=== PATIENT | female | born 1945 | race American Indian/Alaskan Native ===

== ENCOUNTER 2017-08-08 17:21 | Emergency (ER) | payer MEDICARE ==
[2017-08-08 18:05] LABS: Basophils % (Auto) 0.6 % (0.0-1.8); Eosinophils % (Auto) 0.9 % (0.0-4.3); Hematocrit 40.4 % (30.3-42.9); Hemoglobin 13.1 gm/dl (10.1-14.3); Mean Corpuscular HGB Conc 33 % (30-34); Mean Corpuscular Hemoglobin 29 pg (28-32); Mean Corpuscular Volume 90 fl (79-97); Platelet Count 191 K/mm3 (140-440); Red Blood Count 4.47 M/mm3 (3.65-5.03); Red Cell Distribution Width 15.1 % (13.2-15.2); White Blood Count 7.1 K/mm3 (4.5-11.0)
[2017-08-08] MEDS ORDERED: NACL 0.9% 1000 ML 1,000 ML IV ONE (18:08)
[2017-08-08] MEDS ORDERED: ZOFRAN IV ONE (18:08)
--- NOTE | 2017-08-08 18:13 | Emergency Department Report ---
ED Abdominal Pain HPI - General Chief Complaint: Medical Clearance Stated Complaint: FAILURE TO THRIVE Time Seen by Provider: 08/08/17 18:01 Source: EMS Mode of arrival: Stretcher Limitations: Other - History of Present Illness Initial Comments: Patient is 71 years old female sent from [facility] for evaluation of failure to thrive. Patient refuses to eat or drink for the last 2-3 days. Patient was admitted there for suicidal and homicidal ideation. History of dementia, hypertension and asthma. Patient is refusing to talk but I was able to get some information from her, when asked about abdominal pain patient stated that he has, when I ask about urinary symptoms patient stated this. Patient denied chest pain. MD Complaint: abdominal pain - Related Data Home Medications Medication Instructions Recorded Confirmed Last Taken ALPRAZolam [Xanax TAB] 1 mg PO DAILY 11/18/16 11/26/16 11/25/16 Dexlansoprazole (Nf) [Dexilant 1 tab PO DAILY 11/18/16 11/26/16 11/25/16 (Nf)] Furosemide [Lasix] 20 mg PO QDAY 11/18/16 11/26/16 11/25/16 Lisinopril [Zestril TAB] 10 mg PO QDAY 11/18/16 11/26/16 11/26/16 04:00 Nortriptyline HCl [Nortriptyline 1 tab PO DAILY 11/18/16 11/26/16 11/24/16 HCl] Quetiapine Fumarate [Seroquel] 100 mg PO QHS 11/18/16 11/26/16 11/24/16 ALBUTEROL Inhaler [Proair] 2 puff IH QID PRN 11/19/16 11/19/16 Unknown Linaclotide (Nf) [Linzess (Nf)] 290 mcg PO QDAY 11/19/16 11/26/16 11/25/16 Meclizine [Antivert] 25 mg PO TID PRN 11/19/16 11/19/16 Unknown Memantine HCl [Namenda Xr] 28 mg PO DAILY 11/19/16 11/26/16 11/25/16 Naftifine HCl [Naftin 2%] 1 applicatio TP QDAY 11/19/16 11/26/16 11/24/16 predniSONE [Deltasone] 10 mg PO PRN PRN 11/19/16 11/26/16 11/25/16 Allergies Allergy/AdvReac Type Severity Reaction Status Date / Time pregabalin [From Lyrica] Allergy Swelling Unverified 09/17/13 08:58 gabapentin AdvReac CONFUSION Verified 11/19/16 09:57 ED Review of Systems ROS: Stated complaint: FAILURE TO THRIVE Other details as noted in HPI Comment: Unobtainable due to pts medical conditions ED Past Medical Hx - Past Medical History Previous Medical History?: Yes Hx Hypertension: Yes (Cardiac clearance states that no preop beta sarbjit is required.) Hx Diabetes: No (DENIES, NON FASTING GLUCOSE 159,"REPEAT DOS" PER ANESTHESIA FAXED TO PCP) Hx Deep Vein Thrombosis: Yes (H/O"LUNG PULMONARY EMBOLISMS" S AND 2012 NO COUMADIN SINCE 2012) Hx Pulmonary Embolism: Yes ( and 2012 POST BACK SURGERY) Hx GERD: Yes (GERD) Hx Arthritis: Yes Hx Asthma: Yes (Seasonal, mostly with pollen) Hx Dementia: Yes (SEE ABOVE) Hx HIV: No - Surgical History Hx Cholecystectomy: Yes - Social History Smoking Status: Unknown if ever smoked Substance Use Type: None - Medications Home Medications: Home Medications Medication Instructions Recorded Confirmed Last Taken Type ALPRAZolam [Xanax TAB] 1 mg PO DAILY 11/18/16 11/26/16 11/25/16 History Dexlansoprazole (Nf) [Dexilant 1 tab PO DAILY 11/18/16 11/26/16 11/25/16 History (Nf)] Furosemide [Lasix] 20 mg PO QDAY 11/18/16 11/26/16 11/25/16 History Lisinopril [Zestril TAB] 10 mg PO QDAY 11/18/16 11/26/16 11/26/16 04:00 History Nortriptyline HCl [Nortriptyline 1 tab PO DAILY 11/18/16 11/26/16 11/24/16 History HCl] Quetiapine Fumarate [Seroquel] 100 mg PO QHS 11/18/16 11/26/16 11/24/16 History ALBUTEROL Inhaler [Proair] 2 puff IH QID PRN 11/19/16 11/19/16 Unknown History Linaclotide (Nf) [Linzess (Nf)] 290 mcg PO QDAY 11/19/16 11/26/16 11/25/16 History Meclizine [Antivert] 25 mg PO TID PRN 11/19/16 11/19/16 Unknown History Memantine HCl [Namenda Xr] 28 mg PO DAILY 11/19/16 11/26/16 11/25/16 History Naftifine HCl [Naftin 2%] 1 applicatio TP QDAY 11/19/16 11/26/16 11/24/16 History predniSONE [Deltasone] 10 mg PO PRN PRN 11/19/16 11/26/16 11/25/16 History ED Physical Exam - General Limitations: Other General appearance: alert, in no apparent distress - Head Head exam: Present: atraumatic, normocephalic, normal inspection - Eye Eye exam: Present: normal appearance - ENT ENT exam: Present: normal exam, normal orophraynx, mucous membranes dry, TM's normal bilaterally - Neck Neck exam: Present: normal inspection - Respiratory Respiratory exam: Present: normal lung sounds bilaterally. Absent: respiratory distress, wheezes, rales, rhonchi, chest wall tenderness, decreased breath sounds, prolonged expiratory - Cardiovascular Cardiovascular Exam: Present: regular rate, normal rhythm, normal heart sounds - GI/Abdominal GI/Abdominal exam: Present: soft, tenderness, normal bowel sounds. Absent: distended, guarding, rebound, rigid, organomegaly, mass, bruit, pulsatile mass, hernia - Extremities Exam Extremities exam: Present: normal inspection, full ROM, normal capillary refill. Absent: tenderness, pedal edema - Back Exam Back exam: Present: normal inspection. Absent: CVA tenderness (R), CVA tenderness (L) - Neurological Exam Neurological exam: Present: alert, CN II-XII intact - Psychiatric Psychiatric exam: Present: depressed. Absent: anxious, flat affect - Skin Skin exam: Present: warm, dry, intact ED Course Vital Signs 08/08/17 08/08/17 08/08/17 17:25 17:29 17:30 Temperature 98.4 F Pulse Rate 82 Respiratory 16 Rate Blood Pressure 98/48 112/63 O2 Sat by Pulse 97 100 Oximetry 08/08/17 08/08/17 08/08/17 18:00 18:30 19:00 Temperature Pulse Rate Respiratory Rate Blood Pressure 122/63 124/65 119/62 O2 Sat by Pulse 98 100 97 Oximetry 08/08/17 08/08/17 20:00 20:51 Temperature Pulse Rate 84 Respiratory 16 Rate Blood Pressure 130/70 O2 Sat by Pulse 99 99 Oximetry ED Medical Decision Making - Lab Data Result diagrams: 08/08/17 17:44 08/08/17 17:44 - Radiology Data Radiology results: report reviewed CT abdomen and pelvis with no acute finding. Critical care attestation.: If time is entered above; I have spent that time in minutes in the direct care of this critically ill patient, excluding procedure time. ED Disposition Clinical Impression: Abdominal pain, UTI (urinary tract infection), Suicidal ideation Disposition: [id number]/TX-[id number] PSY HOSP/PSY UNIT Is pt being admited?: No Condition: Stable Instructions: Urinary Tract Infection in Women (ED)
[2017-08-08 18:22] LABS: Anion Gap 18 mmol/L; BUN/Creatinine Ratio 18; Blood Urea Nitrogen 11 mg/dL (7-17); Calcium 8.7 mg/dL (8.4-10.2); Carbon Dioxide 27 mmol/L (22-30); Chloride 102.6 mmol/L (98-107); Glucose 84 mg/dL (65-100); Potassium 3.5 mmol/L (3.6-5.0); Sodium 144 mmol/L (137-145)
[2017-08-08] MEDS ORDERED: DILAUDID IV ONE (18:24)
[2017-08-08 19:05] LABS: Alanine Aminotransferase 7 units/L (7-56); Albumin 3.4 g/dL (3.9-5); Albumin/Globulin Ratio 1.5 %; Alkaline Phosphatase 42 units/L (35-129); Anion Gap 17 mmol/L; BUN/Creatinine Ratio 18; Blood Urea Nitrogen 11 mg/dL (7-17); Calcium 8.7 mg/dL (8.4-10.2); Carbon Dioxide 27 mmol/L (22-30); Chloride 102.4 mmol/L (98-107); Glucose 84 mg/dL (65-100); Lipase 36 units/L (13-60); Potassium 3.4 mmol/L (3.6-5.0); Sodium 143 mmol/L (137-145); Total Protein 5.7 g/dL (6.3-8.2)
[2017-08-08 19:14] LABS: Bilirubin,Direct < 0.2 mg/dL (0-0.2); Bilirubin,Indirect 0.2 mg/dL
[2017-08-08] MEDS ORDERED: PROTONIX IV ONE (19:24)
--- NOTE | 2017-08-08 20:32 | Cat Scan Report ---
FINAL REPORT EXAM: CT ABDOMEN PELVIS W CON HISTORY: abdominal pain is and TECHNIQUE: CT abdomen and pelvis with intravenous contrast PRIORS: None. FINDINGS: No acute abnormality identified in the lung bases. Low-density focus seen within the left lobe of the liver adjacent to the fissure may reflect focal possibly hemangioma. Patient is status post cholecystectomy. There is mild prominence of common bile duct most likely a post cholecystectomy and age related finding The spleen demonstrates normal size and attenuation. No pancreatic abnormalities seen. The kidneys demonstrate symmetric contrast enhancement. No evidence of hydronephrosis. The adrenal glands are unremarkable Abdominal aorta is normal in caliber. No pathologically enlarged lymph nodes are identified. No signs of free fluid or free air No evidence of small bowel dilatation. Colon is nondistended. No pericolonic inflammatory change. Urinary bladder is unremarkable. There is compression fracture L2 age indeterminate. IMPRESSION: Compression fracture L2 age-indeterminate Status post cholecystectomy Low-density focus within the left lobe of the liver. Probable focal fat or possibly hemangioma.
[2017-08-08 21:08] LABS: Bacteria,Urine 4+ /HPF (Negative); Bilirubin,Urine NEG (Negative); Blood,Urine MOD (Negative); Ketones,Urine TR mg/dL (Negative); Leukocyte Esterase,Urine LG (Negative); Mucus,Urine 3+ /HPF; Nitrite,Urine NEG (Negative); Urobilinogen,Urine < 2.0 mg/dL (<2.0)
[2017-08-08 21:09] LABS: WBC,Urine > 182.0 /HPF (0.0-6.0)
[2017-08-08] MEDS ORDERED: ROCEPHIN/NS 1 GM/50 ML 1 GM/50 ML BAG IV ONE (22:27)
[2017-08-09 03:09] VITALS: BP 121/62
== END 2017-08-09 03:44 ==
LOC: ED 17:21
DX: R45.851 Suicidal ideations (principal); R45.850 Homicidal ideations; N39.0 Urinary tract infection, site not specified; R10.9 Unspecified abdominal pain; I10 Essential (primary) hypertension; K21.9 Gastro-esophageal reflux disease without esophagitis; J45.909 Unspecified asthma, uncomplicated
CPT/HCPCS: 36415; 74177; 80048; 80074; 81001; 83690; 85025; 87040; 96361; 96365; 96375; 99285; C9113; J0696; J1170; J2405; J7030; Q9967

== ENCOUNTER 2021-07-09 14:58 | Emergency (ER) | payer MEDICARE ==
--- NOTE | 2021-07-09 15:08 | Emergency Department Report ---
ED General Adult HPI - General Stated complaint: G TUBE REPLACEMENT Time Seen by Provider: 07/09/21 15:06 - History of Present Illness Initial comments: Patient was brought in by EMS from a residential secondary to a G-tube malfunction. Apparently the G-tube is not functioning. Patient has tube feeds. She gets her medications through the G-tube. History is obtained from EMS. They are not sure when the G-tube started to malfunction. They are not sure when the last tube was replaced. She states that that information from the residential was not provided. Patient has dementia and cannot provide any history. According to EMS, they asked and the patient is at her baseline mentation. - Related Data Home Medications Medication Instructions Recorded Confirmed Last Taken ALPRAZolam [Xanax TAB] 1 mg PO DAILY 11/18/16 11/26/16 11/25/16 Dexlansoprazole (Nf) [Dexilant 1 tab PO DAILY 11/18/16 11/26/16 11/25/16 (Nf)] Furosemide [Lasix] 20 mg PO QDAY 11/18/16 11/26/16 11/25/16 Nortriptyline HCl 1 tab PO DAILY 11/18/16 11/26/16 11/24/16 Quetiapine Fumarate [Seroquel] 100 mg PO QHS 11/18/16 11/26/16 11/24/16 lisinopriL [Zestril TAB] 10 mg PO QDAY 11/18/16 11/26/16 11/26/16 04:00 Albuterol Mdi (or & Nicu Only) 2 puff IH QID PRN 11/19/16 11/19/16 Unknown [Proair] Linaclotide (Nf) [Linzess (Nf)] 290 mcg PO QDAY 11/19/16 11/26/16 11/25/16 Meclizine [Antivert] 25 mg PO TID PRN 11/19/16 11/19/16 Unknown Memantine HCl [Namenda Xr] 28 mg PO DAILY 11/19/16 11/26/16 11/25/16 Naftifine HCl [Naftin 2%] 1 applicatio TP QDAY 11/19/16 11/26/16 11/24/16 predniSONE [Deltasone] 10 mg PO PRN PRN 0211/26/16 11/25/16 Previous Rx's Medication Instructions Recorded Last Taken Type Ondansetron [Zofran Odt] 4 mg PO Q8HR PRN #14 tab.rapdis 08/08/17 Unknown Rx levoFLOXacin [Levaquin TAB] 500 mg PO QDAY #7 tablet 08/08/17 Unknown Rx Allergies Allergy/AdvReac Type Severity Reaction Status Date / Time pregabalin [From Lyrica] Allergy Swelling Unverified 09/17/13 08:58 gabapentin AdvReac CONFUSION Verified 11/19/16 09:57 ED Review of Systems ROS: Stated complaint: G TUBE REPLACEMENT Other details as noted in HPI Comment: Unobtainable due to pts medical conditions (She will not verbalize or answer questions.) ED Past Medical Hx - Past Medical History Hx Hypertension: Yes (Cardiac clearance states that no preop beta sarbjit is required.) Hx Diabetes: No (DENIES, NON FASTING GLUCOSE 159,"REPEAT DOS" PER ANESTHESIA FAXED TO PCP) Hx Deep Vein Thrombosis: Yes (H/O"LUNG PULMONARY EMBOLISMS" AND 2012 NO COUMADIN SINCE 2012) Hx Pulmonary Embolism: Yes ( and 2012 POST BACK SURGERY) Hx GERD: Yes (GERD) Hx Arthritis: Yes Hx Asthma: Yes (Seasonal, mostly with pollen) Hx Dementia: Yes (SEE ABOVE) Hx HIV: No - Surgical History Hx Cholecystectomy: Yes - Family History Family history: other (Cannot be obtained from the patient secondary to dementia and the fact that she will not answer questions) - Social History Smoking Status: Unknown if ever smoked Substance Use Type: None - Medications Home Medications: Home Medications Medication Instructions Recorded Confirmed Last Taken Type ALPRAZolam [Xanax TAB] 1 mg PO DAILY 11/18/16 11/26/16 11/25/16 History Dexlansoprazole (Nf) [Dexilant 1 tab PO DAILY 11/18/16 11/26/16 11/25/16 History (Nf)] Furosemide [Lasix] 20 mg PO QDAY 11/18/16 11/26/16 11/25/16 History Nortriptyline HCl 1 tab PO DAILY 11/18/16 11/26/16 11/24/16 History Quetiapine Fumarate [Seroquel] 100 mg PO QHS 11/18/16 11/26/16 11/24/16 History lisinopriL [Zestril TAB] 10 mg PO QDAY 11/18/16 11/26/16 11/26/16 04:00 History Albuterol Mdi (or & Nicu Only) 2 puff IH QID PRN 11/19/16 11/19/16 Unknown History [Proair] Linaclotide (Nf) [Linzess (Nf)] 290 mcg PO QDAY 11/19/16 11/26/16 11/25/16 History Meclizine [Antivert] 25 mg PO TID PRN 11/19/16 11/19/16 Unknown History Memantine HCl [Namenda Xr] 28 mg PO DAILY 11/19/16 11/26/16 11/25/16 History Naftifine HCl [Naftin 2%] 1 applicatio TP QDAY 11/19/16 11/26/16 11/24/16 History predniSONE [Deltasone] 10 mg PO PRN PRN 11/19/16 11/26/16 11/25/16 History Ondansetron [Zofran Odt] 4 mg PO Q8HR PRN #14 tab.rapdis 08/08/17 Unknown Rx levoFLOXacin [Levaquin TAB] 500 mg PO QDAY #7 tablet 08/08/17 Unknown Rx ED Physical Exam - General Limitations: Other (Limited by dementia and interactiveness. He appears to be frail) General appearance: alert, in no apparent distress - Head Head exam: Present: atraumatic, normocephalic, normal inspection - Eye Eye exam: Present: normal appearance, EOMI. Absent: scleral icterus - ENT ENT exam: Present: mucous membranes dry, normal external ear exam - Neck Neck exam: Present: normal inspection. Absent: lymphadenopathy - Respiratory Respiratory exam: Present: normal lung sounds bilaterally. Absent: respiratory distress - Cardiovascular Cardiovascular Exam: Present: regular rate, normal rhythm - GI/Abdominal GI/Abdominal exam: Present: soft. Absent: distended, pulsatile mass - Extremities Exam Extremities exam: Present: normal capillary refill. Absent: pedal edema - Neurological Exam Neurological exam: Present: alert, other - Skin Skin exam: Present: warm (Patient has spontaneous movement of her arms and legs but will not follow commands or verbalize), dry ED Course Vital Signs 07/09/21 07/09/21 07/09/21 15:54 16:30 16:45 Temperature 97.9 F Pulse Rate 89 Respiratory 16 Rate Blood Pressure 114/55 Blood Pressure 110/57 [Left] O2 Sat by Pulse 97 99 98 Oximetry 07/09/21 07/09/21 07/09/21 17:00 17:01 17:15 Temperature Pulse Rate Respiratory Rate Blood Pressure 114/55 113/52 Blood Pressure [Left] O2 Sat by Pulse 98 96 97 Oximetry 07/09/21 07/09/21 07/09/21 17:31 17:45 18:01 Temperature Pulse Rate Respiratory Rate Blood Pressure 114/49 117/57 122/54 Blood Pressure [Left] O2 Sat by Pulse 97 98 97 Oximetry 07/09/21 07/09/21 07/09/21 18:15 18:31 18:45 Temperature Pulse Rate Respiratory Rate Blood Pressure 117/53 119/60 129/56 Blood Pressure [Left] O2 Sat by Pulse 98 99 99 Oximetry 07/09/21 19:01 Temperature Pulse Rate Respiratory Rate Blood Pressure 116/50 Blood Pressure [Left] O2 Sat by Pulse 98 Oximetry - Reevaluation(s) Reevaluation #1: 07/09/21 15:08 EMS was met. Will attempt to flush the G-tube. Reevaluation #2: 07/09/21 19:08 G-tube was changed, flushed, and the patient was discharged. - Feeding Tube Replacement Reason for Replacement: not functioning/damaged Initial Tube Inserted: greater than 4 weeks Type of Tube: gastrostomy Use of Tube: medications and feeding Insertion Site Prior to Procedure: clean Tube Used for Reinsertion: other (PEG 16f) Syriac Tube Size (F): 16 Balloon Size (mls): 4 Verification of Placement: auscultation, other (Flexion aspiration) Tube Secured by: G-tube attachment device Patient Tolerated Procedure: well, no complications Critical Care Time: No Critical care attestation.: If time is entered above; I have spent that time in minutes in the direct care of this critically ill patient, excluding procedure time. ED Disposition Clinical Impression: Gastrostomy tube dysfunction Disposition: 03 DETENTION FACILITY Is pt being admited?: No Condition: Stable Instructions: PEG Tube Home Guide, [id number], How to Care for a Feeding Tube Additional Instructions: Continue to flush the G-tube on a regular basis. Return for problems.
[2021-07-10 01:53] VITALS: BP 117/46
== END 2021-07-10 01:55 ==
LOC: ED 14:58
DX: K94.23 Gastrostomy malfunction (principal); I10 Essential (primary) hypertension; K21.9 Gastro-esophageal reflux disease without esophagitis; M19.90 Unspecified osteoarthritis, unspecified site; F03.90 Unspecified dementia, unspecified severity, without behavioral disturbance, psychotic disturbance, mood disturbance, and anxiety; J45.909 Unspecified asthma, uncomplicated; Z88.8 Allergy status to other drugs, medicaments and biological substances; Z88.9 Allergy status to unspecified drugs, medicaments and biological substances
CPT/HCPCS: 99283